=== PATIENT | female | born 1970 | race Caucasian/White ===

== ENCOUNTER → 2016-08-01 06:51 | Day surgery (SDC) | payer OTHER ==
[~2016-08-01 06:51] MED LIST: Acetaminophen TAB* 325 MG PO PRN; Buffered Lidocaine 1% SYR 3ML* 3 ML/SYR SYRINGE INTRADERM ONE; Buffered Lidocaine 1% SYR 3ML* 3 ML/SYR SYRINGE ONE; Dexamethasone IV* 4 MG/ML 1 ML (4 MG) ONE; DiMENhydriNATE IV* 50 MG/ML VIAL IV PUSH PRN; DiMENhydriNATE IV* 50 MG/ML VIAL ONE; Famotidine IV* 10 MG/ML 2 ML (20 mg) IV ONE; Famotidine IV* 10 MG/ML 2 ML (20 mg) ONE; HYDROmorphone INJ* 1 MG/ML CARPUJECT SYRINGE IV PRN; Ketorolac INJ* 30 MG/ML 1 ML VIAL ONE; Lidocaine 2% MPF* 2 ML VIAL ONE; Midazolam* 1 MG/ML 5 ML VIAL (5 MG) ONE; Ondansetron INJ* 2 MG/ML VIAL ONE; Propofol* 10 MG/ML 20 ML BTL IV PUSH ONE; ceFOXitin 2 GM IVPREMIX* 2 GM/50 ML BAG ONE; fentaNYL* 50 MCG/ML 2 ML VIAL (100 MCG VIAL) ONE; oxyCODONE/Acetamin 5/325 MG* TAB PO PRN
[2016-08-01 10:45] VITALS: BP 115/77
--- NOTE | 2016-08-01 12:23 | OP ---
DATE OF OPERATION: 08/01/16 - [facility] DATE OF : 66 SURGEON: Maureen Daniels MD ANESTHESIOLOGIST: Randa Holman MD ANESTHESIA: General endotracheal. PRE-OP DIAGNOSES: Endometrial polyp and menorrhagia. POST-OP DIAGNOSES: Endometrial polyp and menorrhagia. No evidence of endometrial polyp. OPERATIVE PROCEDURE: Dilation, curettage, and hysteroscopy. ESTIMATED BLOOD LOSS: Minimal. URINE OUTPUT: 200 cc of clear yellow urine. FLUIDS: 800 cc of crystalloid. DEFICIT: 150 cc of lactated Ringer's. FINDINGS: Revealed normal uterine cavity with exuberant endometrial lining. Normal tubal ostia seen. Post-hysteroscopy, excellent sampling of endometrium. COMPLICATIONS: None apparent. DISPOSITION: Stable to recovery room. DESCRIPTION OF PROCEDURE: The patient was placed in dorsal lithotomy position. Legs were placed in [place]do stirrups. Perineum and vagina were prepped and draped in the sterile standard fashion. The patient was identified with universal protocol for correct procedure, patient, and position. The sterile self- cath was inserted, drainage of clear yellow urine 200 cc, self- cath was removed. The sterile speculum was then inserted. Cervix was visualized , grasped from the anterior lip, and dilated to #7 Hegar dilator. The hysteroscope was then inserted. Uterine cavity was noted to have a normal contour with no polyps, masses, or excrescences. Normal tubal ostia were seen. Thickened endometrium was appreciated. At that point, the hysteroscope was removed and sharp curettage was performed of all four quadrants. Hysteroscope was then reinserted confirming excellent sampling. Hysteroscope was removed. Single-tooth tenaculum was removed. Sterile speculum was removed. All sponge, instrument, blade counts were correct throughout the case. The patient tolerated the procedure well and went to recovery room in stable condition. [id number]/[facility] #: [id number] [facility]
== END | disposition home or self-care (01) ==
LOC: OR 06:51
PROVIDERS: ATTEND Obstetrics & Gynecology
DX: N92.0 Excessive and frequent menstruation with regular cycle (principal)
CPT/HCPCS: 88305; J0694; J1100; J1240; J1885; J2250; J2405; J2704; J3010